=== PATIENT | female | born 1990 | race African-American/Black ===

== ENCOUNTER 2020-07-09 22:48 | Inpatient (IN) ==
[2020-07-09] MEDS ORDERED: ONDANSETRON 4 MG/2 ML VIAL IV PRN ×2 (23:09→23:35)
[2020-07-09] MEDS ORDERED: LACTATED RINGERS 1,000 ML IV ONE (23:09)
[2020-07-09] MEDS ORDERED: MEPERIDINE 50 MG/1 ML VIAL IV PRN (23:09)
[2020-07-09] MEDS ORDERED: BUTORPHANOL 2 MG/ML VIAL ONE (23:10)
[2020-07-09] MEDS ORDERED: LIDOCAINE 1% 50 ML VIAL ONE (23:11)
[2020-07-09] MEDS ORDERED: OXYTOCIN/LR 20 UNIT/1,000 ML BAG IV ONE ×3 (23:11→23:35)
[2020-07-09] MEDS ORDERED: miSOPROStoL 200 MCG TABLET ONE (23:11)
[2020-07-09] MEDS ORDERED: BUTORPHANOL 2 MG/ML VIAL IV ONE (23:19)
[2020-07-09 23:23] LABS: Basophils % 0.2 % (0.0-0.8); Eosinophils # 0.1 10*3/uL (0.0-0.87); Eosinophils % 0.8 % (0.00-10.9); Hematocrit 31.8 VOL% (35.7-47.0); Hemoglobin 10.7 GM/DL (12.0-16.0); Immature Granulocytes % 1.3 %; Immature Granulocytes Absolute 0.22 #; Lymphocytes # 3.9 10*3/uL (1.4-4.0); Lymphocytes % 23.3 % (21.3-54.2); Mean Corpuscular HGB Conc 33.6 GM/DL (32-36); Mean Corpuscular Volume 94.6 FL (87-102); Mean Platelet Volume 8.8 FL (9.6-12.0); Monocytes % 7.1 % (1.7-12.7); Neutrophils % 67.3 % (38.7-73.9); Platelet Count 260 T/CUMM (130-400); Red Blood Count 3.36 MC/CUMM (3.8-5.5); Red Cell Distribution Width 13.7 % (9.3-17.3); White Blood Count 16.8 T/CUMM (4-12)
[2020-07-09] MEDS ORDERED: LACTATED RINGERS 1,000 ML IV SCH (23:30)
[2020-07-09] MEDS ORDERED: ACETAMINOPHEN 325 MG TABLET PO PRN (23:35)
[2020-07-09] MEDS ORDERED: MEASLES/MUMPS/RUBELLA VACCINE 0.5 ML VIAL SUBCUT ONE (23:35)
[2020-07-09] MEDS ORDERED: RHO(D) IMMUNE GLOBULIN 300 MCG SYRINGE IM ONE (23:35)
[2020-07-09] MEDS ORDERED: DIPH/TET/ACEL PERT BOOSTER VACCINE 0.5 ML VIAL IM ONE (23:35)
[2020-07-09] MEDS ORDERED: BISACODYL 10 MG SUPP RECTAL PRN (23:35)
[2020-07-09] MEDS ORDERED: BENZOCAINE 20%/MENTHOL 0.5% SPRAY 56 GM CAN TOP PRN (23:35)
[2020-07-09] MEDS ORDERED: LANOLIN 50% CREAM 0.3 OZ TUBE TOP PRN (23:35)
[2020-07-09] MEDS ORDERED: oxyCODONE/ACETAMINOPHEN 5-325 MG TABLET PO PRN (23:35)
[2020-07-09] MEDS ORDERED: HYDROCORTISONE 2.5% RECTAL CREAM 30 GM TUBE TOP PRN (23:35)
[2020-07-09] MEDS ORDERED: WITCH HAZEL PADS 100/JAR TOP PRN (23:35)
[2020-07-09 23:39] LABS: Cord Arterial Blood HCO3 23.6 MMOL/L
[2020-07-09 23:41] LABS: Cord Venous Blood PCO2 36.5 MMHG; Cord Venous Blood PO2 45.2
[2020-07-09 23:43] LABS: Alanine Aminotransferase 12 U/L (13-56); Albumin 2.7 G/DL (3.4-5.0); Alkaline Phosphatase 102 U/L (45-117); Aspartate Amino Transferase 14 U/L (0-37); Bilirubin,Total < 0.39 MG/DL (0.2-1.0); Blood Urea Nitrogen 4 MG/DL (7-18); Calcium 8.2 MG/DL (8.5-10.1); Carbon Dioxide 23 MMOL/L (21-32); Estimated Glom Filtration Rate 158 ML/MIN; Glucose 81 MG/DL (74-106); Osmolality,Calculated 272.5 MOS/KG (273-304); Potassium 3.5 MMOL/L (3.5-5.1); Sodium 139 MMOL/L (136-145); Total Protein 6.8 G/DL (6.4-8.2)
[2020-07-10 00:06] LABS: Barbiturates Screen,Urine Negative (Negative); Benzodiazepines Screen,Urine Negative (Negative); Cannabinoid Screen,Urine Positive (Negative); Opiate Screen,Urine Negative (Negative); Phencyclidine Screen,Urine Negative (Negative)
[2020-07-10 00:07] LABS: Bacteria,Urine Occasional /HPF (Few); Bilirubin,Urine Negative (Negative); Blood, Urine Negative (Negative); Glucose,Urine (UA) Negative (Negative); Ketones,Urine 5 mg/dL (Negative); Mucus,Urine Many /LPF (Occasional); Nitrite,Urine Negative (Negative); Protein,Urine 30 MG/DL; RBC,Urine 14 /HPF (0-4); Squamous Epithelial Cell,Urine Few /HPF (0-10); Urine Appearance Slightly Hazy (Clear); Urine Color Yellow (Yellow); Urine Specific Gravity 1.021 (1.001-1.035); WBC,Urine 51 /HPF (0-6)
[2020-07-10] MEDS: oxyCODONE/ACETAMINOPHEN 5-325 MG TABLET PO PRN ×3 (02:02→17:07)
[2020-07-10] MEDS: IBUPROFEN 800 MG TABLET PO PRN ×2 (02:03→17:07)
[2020-07-10 05:25] LABS: Basophils % 0.1 % (0.0-0.8); Eosinophils # 0.1 10*3/uL (0.0-0.87); Eosinophils % 0.5 % (0.00-10.9); Hematocrit 30.3 VOL% (35.7-47.0); Hemoglobin 10.5 GM/DL (12.0-16.0); Immature Granulocytes % 0.9 %; Immature Granulocytes Absolute 0.16 #; Lymphocytes # 3.5 10*3/uL (1.4-4.0); Lymphocytes % 19.5 % (21.3-54.2); Mean Corpuscular HGB Conc 34.7 GM/DL (32-36); Mean Corpuscular Volume 94.4 FL (87-102); Mean Platelet Volume 8.8 FL (9.6-12.0); Monocytes % 7.2 % (1.7-12.7); Neutrophils % 71.8 % (38.7-73.9); Platelet Count 232 T/CUMM (130-400); Red Blood Count 3.21 MC/CUMM (3.8-5.5); Red Cell Distribution Width 13.4 % (9.3-17.3); White Blood Count 17.7 T/CUMM (4-12)
[2020-07-10] MEDS: DOCUSATE SODIUM 100 MG CAPSULE PO SCH ×2 (08:21→19:54)
[2020-07-10] MEDS ORDERED: ONDANSETRON 4 MG TABLET PO PRN (15:35)
[2020-07-11 07:57] VITALS: BP 99/63
[2020-07-11] MEDS: DOCUSATE SODIUM 100 MG CAPSULE PO SCH (08:12)
== END 2020-07-11 12:25 | disposition home or self-care (01) | DRG 560 ==
LOC: N.LDOUT 22:48 → N.LD 22:49 → N.OB 07-10 08:43
PROVIDERS: ADMIT Specialist; ATTEND Specialist